=== PATIENT | male | born 1975 | race Caucasian/White ===

== ENCOUNTER 2020-12-13 12:11 | Emergency (ER) | payer BC ==
[~2020-12-13] VITALS: Ht 188 cm; Wt 81.8 kg
[2020-12-13] MEDS ORDERED: CYCLOBENZAPRINE 10 MG TABLET. PO ONE (12:45)
[2020-12-13] MEDS ORDERED: KETOROLAC 15 MG/ML VIAL. IM ONE (12:45)
--- NOTE | 2020-12-13 13:13 | RAD ---
Site ID: [id number] EXAMINATION: XR KNEE _3 VIEWS_LT. HISTORY: 45 years Male fall COMPARISON: None. FINDINGS: No fracture, dislocation or radiopaque foreign body. The joint spaces and articular surfaces appea r unremarkable. IMPRESSION: Unremarkable exam. Electronically signed by: David Vergara MD (12/13/2020 1:11 PM) [id number]
[2020-12-13 13:16] LABS: BACTERIA,URINE 0 /HPF (0-FEW); BILIRUBIN,URINE NEG (NEG); CLARITY,URINE HAZY; COLOR,URINE COLORLESS; GLUCOSE,URINE NEG (NEG); NITRITE,URINE NEG (NEG); RBC,URINE 0 /HPF (0-2); SQUAMOUS EPITHELIAL CELL,UR MOD /LPF; UROBILINOGEN,URINE 0.2 mg/dL (0.2 mg/dL); WBC,URINE 0 /HPF (0-4)
[2020-12-13 13:24] VITALS: BP 136/82
--- NOTE | 2020-12-13 13:48 | PHYS DOC ---
Past History Past Surgical History: Other Alcohol Use: None General Adult EDM: Chief Complaint: BACK PAIN OR INJURY HPI: HPI: Patient is a 45-year-old male who presents after a fall at work today. Patient states he slipped on a piece of wood and fell down to his knees. Patient states that he has left knee pain and left flank pain. Denies falling on his back. Patient reports that he has a history of chronic left-sided back pain. Denies taking anything prior to arrival for pain denies medical history. Review of Systems: Review of Systems: ROS At least 10 ROS systems have been reviewed and are negative except as documented in the HPI. General: Negative except as outlined in HPI above. Skin: Negative except as outlined in HPI above. HEENT: Negative except as outlined in HPI above. Neck: Negative except as outlined in HPI above. Respiratory: Negative except as outlined in HPI above.. Cardiovascular: Negative except as outlined in HPI above. Abdomen: Negative except as outlined in HPI above. : Negative except as outlined in HPI above. Back/MSK: Negative except as outlined in HPI above. Neuro: Negative except as outlined in HPI above. Psych: Negative except as outlined in HPI above. Current Medications: Current Meds: Current Medications Medications (Trade) Dose Ordered Sig/Patience Start Time Stop Time Status Last Admin Dose Admin Cyclobenzaprine HCl (Flexeril) 10 mg 1X ONCE 12/13/20 12:45 12/13/20 12:46 UNV Ketorolac Tromethamine (Toradol 15mg Vial) 15 mg 1X ONCE 12/13/20 12:45 12/13/20 12:46 UNV Allergies: Allergies: Allergies Coded Allergies Type Severity Reaction Last Updated Verified No Known Drug Allergies 12/13/20 No Physical Exam: PE: Constitutional: Well developed, well nourished, no acute distress, non-toxic appearance. [] HENT: Normocephalic, atraumatic, bilateral external ears normal, oropharynx moist, no oral exudates, nose normal. [] Eyes: PERRLA, EOMI, conjunctiva normal, no discharge. [] Neck: Normal range of motion, no tenderness, supple, no stridor. [] Cardiovascular:Heart rate regular rhythm, no murmur [] Lungs & Thorax: Bilateral breath sounds clear to auscultation [] Abdomen: Bowel sounds normal, soft, no tenderness, no masses, no pulsatile masses. [] Skin: Warm, dry, no erythema, no rash. [] Back: No tenderness, left CVA tenderness. [] Extremities: Left knee tenderness, ROM intact, no edema. [] Neurologic: Alert and oriented X 3, normal motor function, normal sensory function, no focal deficits noted. [] Psychologic: Affect normal, judgement normal, mood normal. [] Current Patient Data: Labs: Laboratory Tests Test 12/13/20 12:40 Urine Collection Type Unknown Urine Color Colorless Urine Clarity Hazy Urine pH 6.0 Urine Specific [place] <=1.005 Urine Protein Neg (NEG-TRACE) Urine Glucose (UA) Neg mg/dL (NEG) Urine Ketones (Stick) Neg mg/dL (NEG) Urine Blood Trace (NEG) Urine Nitrite Neg (NEG) Urine Bilirubin Neg (NEG) Urine Urobilinogen Dipstick 0.2 mg/dL (0.2 mg/dL) Urine Leukocyte Esterase Neg (NEG) Urine RBC 0 /HPF (0-2) Urine WBC 0 /HPF (0-4) Urine Squamous Epithelial Cells Mod /LPF Urine Bacteria 0 /HPF (0-FEW) Vital Signs: Vital Signs Date Time Temp Pulse Resp B/P (MAP) Pulse Ox O2 Delivery O2 Flow Rate FiO2 12/13/20 13:24 88 18 136/82 (100) 99 EKG: EKG: [] Radiology/Procedures: Radiology/Procedures: [] Heart Score: C/O Chest Pain: No Risk Factors: Risk Factors: DM, Current or recent (<one month) smoker, HTN, HLP, family history of CAD, obesity. Risk Scores: Score 0 - 3: 2.5% MACE over next 6 weeks - Discharge Home Score 4 - 6: 20.3% MACE over next 6 weeks - Admit for Clinical Observation Score 7 - 10: 72.7% MACE over next 6 weeks - Early Invasive Strategies Course & Med Decision Making: Course & Med Decision Making Pertinent Labs and Imaging studies reviewed. (See chart for details) [] 41 male presents after a fall at work today. Patient slipped on a piece of wood and fell down to his knees. Left knee pain and left flank pain. Patient does report a history of chronic back pain. UA, Flexeril, Toradol, left knee x- ray ordered. UA showed trace blood. BMP ordered along with CT abdomen and pelvis. RN went to give patient medications, patient stated that he wanted to leave and he was not going to allow any blood to be drawn. Patient signed AMA paperwork. Abe Disclaimer: Abe Disclaimer: This electronic medical record was generated, in whole or in part, using a voice recognition dictation system. Departure Departure: Impression: Primary Impression: Left knee pain Qualified Codes: M25.562 - Pain in left knee Additional Impressions: Chronic back pain Qualified Codes: M54.6 - Pain in thoracic spine; G89.29 - Other chronic pain Fall Qualified Codes: W19.XXXA - Unspecified fall, initial encounter Disposition: LEFT AGAINST MEDICAL ADVICE Condition: STABLE Referrals: PCP,NO (PCP) TANGELA SOLITARIO APRN Dec 13, 2020 13:48
== END 2020-12-13 13:50 | disposition left against medical advice (07) ==
LOC: ER 12:28
DX: M25.562 Pain in left knee (principal); M54.6 Pain in thoracic spine; W10.8XXA Fall (on) (from) other stairs and steps, initial encounter; Y93.89 Activity, other specified; Y92.89 Other specified places as the place of occurrence of the external cause; Y99.8 Other external cause status
CPT/HCPCS: 73562; 81001; 99283-25

== ENCOUNTER 2021-01-04 07:18 | Emergency (ER) | payer BC ==
[~2021-01-04] VITALS: Ht 188 cm; Wt 81.0 kg
[2021-01-04 07:25] VITALS: BP 135/85
--- NOTE | 2021-01-04 07:41 | PHYS DOC ---
Past History Additional Past Medical Histor: ptsd, schizoeffective disorder paranoid agoraphobia Past Surgical History: Other Additional Past Surgical Histo: sinus surgery x 2 Alcohol Use: None Adult General Chief Complaint Chief Complaint: FACE PAIN HPI HPI Patient is a 45-year-old male presenting via EMS for facial inflammation. This is an acute on chronic problem. He has extensive history of sinus abnormalities, states he was followed in outpatient setting by ENT throughout his life for sinus issues. He had sinus reconstruction surgery and subsequent stenting in 2001 and again in 2014. States his first surgery was at [facility] and cannot remember where his subsequent surgery was performed. Admits he has been lost to outpatient follow-up, has been living in [place] recently and just relocated back to [place] where he has no primary care physician or any type of outpatient access to care. He started developing URI symptoms yesterday with subsequent rapid inflammation of his right sinus and orbit which concerned him as this was consistent with prior episodes requiring surgery prompting him to call EMS for transport to our facility. Admits he has been at baseline health otherwise, no fever, admits development of rhinorrhea and nasal congestion yesterday without any obvious sick contacts, he is fully vaccinated against COVID-19 Review of Systems Review of Systems Fourteen body systems of review of systems have been reviewed. See HPI for pertinent positives and negative responses, other devlin all other systems are negative, non-pertinent or non-contributory Allergies Allergies Allergies Coded Allergies Type Severity Reaction Last Updated Verified No Known Drug Allergies 01/04/21 No Physical Exam Physical Exam General: Appears well, non toxic, and comfortable Skin: Warm, dry. Normal for ethnicity. HEENT: Atraumatic. PERRLA. Rhinorrhea and congestion. Nasal turbinates boggy b/l. Moist mucous membranes. Uvula midline. Maintaining secretions. No phonation changes. Right maxillary and frontal sinus tenderness with palpation without obvious soft tissue swelling and swelling around right superior orbit Neck: Trachea midline. Normal ROM. No stridor. Respiratory: Normal WOB. CTAB w/o w/r/r. No tachypnea. Cardiovascular: Regular rate and rhythm. Normal peripheral perfusion. Abdomen: Soft. Non tender. No distension. Back: Normal ROM. Musculoskeletal: No swelling or deformity. Neuro: Alert and oriented x 4. MAEE. Lymph: No cervical LAD. Psych: Flat affect, depressed mood Current Patient Data Vital Signs Vital Signs Date Time Temp Pulse Resp B/P (MAP) Pulse Ox O2 Delivery O2 Flow Rate FiO2 01/04/21 07:25 97.9 57 18 135/85 (102) 99 EKG EKG [] Radiology/Procedures Radiology/Procedures EXAM: CT facial bones with and without contrast. HISTORY: Right maxillary swelling. Prior sinus procedure. TECHNIQUE: CT of the facial bones was performed before and after the intravenous administration of iodinated contrast. One or more of the following individualized dose reduction techniques were utilized for this examination: 1. Automated exposure control. 2. Adjustment of the mA and/or kV according to patient size. 3. Use of iterative reconstruction technique. COMPARISON: None. FINDINGS: There are changes of right maxillary sinus decompressive surgery. The postsurgical ostium is widely patent. There is mild mucosal thickening within the right maxillary sinus. The right middle turbinates have been mostly resected. The left maxillary sinus is mostly opacified by mucosal thickening, without clear fluid levels. The ethmoid air cells are mostly opacified on the right and partially opacified on the left. There is moderate mucosal thickening within the frontal sinus, which also contains a small amount of fluid. The sphenoid sinus is clear. The left ostiomeatal unit is not patent. No soft tissue inflammatory process is identified. The orbits are unremarkable bilaterally. Limited images of the brain reveal no abnormality. The mastoid air cells are normally aerated. Both petrous apices are pneumatized. There are no facial fractures. IMPRESSION: 1. The left maxillary sinus is mostly opacified, mostly by mucosal thickening. 2. The ethmoid air cells are partially opacified on the right greater than left. There is some fluid within the frontal sinus. 3. Status post surgical decompression of the right maxillary sinus. Electronically signed by: Shivam Breen MD (01/04/2021 8:38 AM) [id number] Heart Score C/O Chest Pain: No Risk Factors: Risk Factors: DM, Current or recent (<one month) smoker, HTN, HLP, family history of CAD, obesity. Risk Scores: Risk Factors: DM, Current or recent (<one month) smoker, HTN, HLP, family history of CAD, obesity. Course & Med Decision Making Course & Med Decision Making ABCs unremarkable HPI physical exam and comprehensive ER work-up nonconcerning for any emergent or surgical issues Findings consistent with sinusitis. Despite being acute in nature, patient has concerning comorbid history and extensive sinus surgery with subsequent complications. Joint decision made to treat with antibiotics given high risk for worsening condition Patient tolerated p.o. Augmentin administered in ER setting. Subsequent prescription written. Patient educated on need for close PCP and ENT follow-up in outpatient setting to ensure continued symptomatic improvement. Strict return precautions discussed with good understanding, all questions and concerns addressed prior to ER departure Dragon Disclaimer Dragon Disclaimer This electronic medical record was generated, in whole or in part, using a voice recognition dictation system. Departure Departure: Impression: Primary Impression: Acute sinusitis with coexisting condition requiring prophylactic treatment Disposition: HOME / SELF CARE / HOMELESS Condition: STABLE Referrals: PCP,NO (PCP) Patient Instructions: Sinusitis Scripts Amoxicillin/Potassium Clav (AUGMENTIN 875-125 TABLET) 1 Each Tablet 1 TAB PO BID for sinusitis for 7 Days, #14 TAB 0 Refills Prov: LYNDSEY MONTANA DO 01/04/21 LYNDSEY MONTANA DO Jan 04, 2021 07:41
[2021-01-04] MEDS ORDERED: IOHEXOL 300 MG/ML 75 ML VIAL. IV ONE (07:45)
[2021-01-04] MEDS ORDERED: HYDROcodone/APAP 7.5/325MG 1 TAB TABLET PO ONE (08:00)
--- NOTE | 2021-01-04 08:41 | RAD ---
EXAM: CT facial bones with and without contrast. HISTORY: Right maxillary swelling. Prior sinus procedure. TECHNIQUE: CT of the facial bones was performed before and after the intravenous administration of io dinated contrast. One or more of the following individualized dose reduction techniques were utilized for this examination: 1. Automated exposure control. 2. Adjustment of the mA and/or kV according to patient size. 3. Use of iterative reconstruction technique. COMPARISON: None. FINDINGS: There are changes of right maxillary sinus decompressive surgery. The postsurgical ostium i s widely patent. There is mild mucosal thickening within the right maxillary sinus. The right middle turbinates have been mostly resected. The left maxillary sinus is mostly opacified by mucosal thickening, without clear fluid levels. The e thmoid air cells are mostly opacified on the right and partially opacified on the left. There is mode rate mucosal thickening within the frontal sinus, which also contains a small amount of fluid. The sphenoid sinus is clear. The left ostiomeatal unit is not patent. No soft tissue inflammatory process is identified. The orbits are unremarkable bilaterally. Limited i mages of the brain reveal no abnormality. The mastoid air cells are normally aerated. Both petrous ap ices are pneumatized. There are no facial fractures. IMPRESSION: 1. The left maxillary sinus is mostly opacified, mostly by mucosal thickening. 2. The ethmoid air cells are partially opacified on the right greater than left. There is some fluid within the frontal sinus. 3. Status post surgical decompression of the right maxillary sinus. Electronically signed by: Shivam Breen MD (01/04/2021 8:38 AM) [id number]
[2021-01-04] MEDS ORDERED: AMOX1TAB61 PO (08:48)
[2021-01-04] MEDS ORDERED: AMOXICILLIN/K CLAV 875/125MG TABLET. ONE (08:55)
[2021-01-04] MEDS ORDERED: AMOXICILLIN/K CLAV 875/125MG TABLET. PO ONE (09:00)
== END 2021-01-04 09:01 | disposition home or self-care (01) ==
LOC: ER 07:18
DX: J01.10 Acute frontal sinusitis, unspecified (principal); Z20.822 Contact with and (suspected) exposure to COVID-19
CPT/HCPCS: 70488; 99285; C9803; Q9967; U0003

== ENCOUNTER 2021-01-24 13:50 | Emergency (ER) | payer BC ==
[~2021-01-24] VITALS: Ht 188 cm; Wt 81.0 kg
[~2021-01-24 13:50] MED LIST: AMOX1TAB61 PO
--- NOTE | 2021-01-24 14:02 | PHYS DOC ---
Past History Additional Past Medical Histor: ptsd, schizoeffective disorder paranoid agoraphobia Past Surgical History: Other Additional Past Surgical Histo: sinus surgery x 2 Alcohol Use: Occasionally Adult General HPI HPI Patient is a 45-year-old male with a past medical history of schizophrenia, anxiety and depression who presents with suicidal ideation and plan. States that he went to sometime back for the same thing, and was treated while he was there but after he was gone he ran out of his medications and is homeless and has been thinking about committing suicide by any means necessary including overdose or running out into the middle of traffic. Currently denies any homicidal ideation or hallucinations. Denies any recent traumas, travels, illnesses, fevers, chest pain, shortness of breath, abdominal pain, nausea, vomiting. States he had not eaten in a couple days. Review of Systems Review of Systems Review of systems otherwise unremarkable except noted in HPI Allergies Allergies Allergies Coded Allergies Type Severity Reaction Last Updated Verified No Known Drug Allergies 01/04/21 No Physical Exam Physical Exam Constitutional: Well developed, well nourished, no acute distress, non-toxic appearance. [] HENT: Normocephalic, atraumatic, bilateral external ears normal, oropharynx moist, no oral exudates, nose normal. [] Eyes: PERRLA, EOMI, conjunctiva normal, no discharge. [] Neck: Normal range of motion, no tenderness, supple, no stridor. [] Cardiovascular:Heart rate regular rhythm, no murmur [] Lungs & Thorax: Bilateral breath sounds clear to auscultation [] Abdomen: Bowel sounds normal, soft, no tenderness, no masses, no pulsatile masses. [] Skin: Warm, dry, no erythema, no rash. [] Back: No tenderness, no CVA tenderness. [] Extremities: No tenderness, no cyanosis, no clubbing, ROM intact, no edema. [] Neurologic: Alert and oriented X 3, normal motor function, normal sensory function, no focal deficits noted. [] Psychologic: Affect normal, judgement normal, mood normal. [] EKG EKG [] Radiology/Procedures Radiology/Procedures [] Heart Score C/O Chest Pain: No Risk Factors: Risk Factors: DM, Current or recent (<one month) smoker, HTN, HLP, family history of CAD, obesity. Risk Scores: Risk Factors: DM, Current or recent (<one month) smoker, HTN, HLP, family history of CAD, obesity. Course & Med Decision Making Course & Med Decision Making Patient is a 45-year-old male who presents with suicidal ideation and plan Vital signs notable for sinus tachycardia. Physical exam noted above. Placed on the monitor with IV access established and IV fluid resuscitation begun. On reevaluation, patient stated that he is not suicidal, not homicidal and definitely not hallucinating. States only reason he came in today is because he is homeless, needed a place to rest and some to eat and was hoping to be transferred to so he can get some medications. Discussed this with patient stating that he had came in wanting some help and we had a plan to draw labs and try to get him admitted to facility where he could get medication management. States that he already knows what his diagnoses are, is not suicidal, not homicidal or hallucinating and is going to leave here and go back over to because that is where he gets his usual care and he had already called them on the phone to let them know he was coming. 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 Patient alert and oriented no acute distress, cooperative and pleasant despite wanting to leave, ate some food while here in the ED and left on his own accord. Dragon Disclaimer Dragon Disclaimer This electronic medical record was generated, in whole or in part, using a voice recognition dictation system. Departure Departure: Impression: Primary Impression: Suicidal ideation Disposition: 01 HOME / SELF CARE / HOMELESS Condition: STABLE Referrals: PCP,NO (PCP) DAVID COOPER MD Patient Instructions: Anxiety and Panic Attacks, Depression, Adult, Suicidal Feelings, How to Help Yourself Additional Instructions: Thank you for coming into the emergency department today. Please read all the attached information carefully go back over some of the things we discussed. Please go through the resources given to you by the ER and the psychiatric assessment steam clean machine operator. You are offered boarding here in the emergency department with laboratory analysis and medical management until a bed was found for you at an inpatient service. You stated that you were not suicidal, not homicidal and not hallucinating and the only reason you came in here today is because you are homeless, he wanted something to eat and was hoping to get a ride over to as that is where you have gotten your care in the past. You stated that she called [facility] on your phone from here, to let them know that you were coming by and was going to go straight to [facility] after leaving here. We discussed that it was possible to get the care that he needed here and just had to wait so we can get some things of motion. Patient was polite and stated no thank you, on February go ahead and leave and had to [facility], and I am not suicidal, homicidal or hallucinating so I do not need to stay. KAIN MIGUEL MD Jan 24, 2021 14:02
[2021-01-24] MEDS ORDERED: IV RINGERS SOLUTION,LACTATED 1,000 ML IV ONE (14:45)
== END 2021-01-24 15:47 | disposition home or self-care (01) ==
LOC: ER 13:50
DX: R45.851 Suicidal ideations (principal); F32.9 Major depressive disorder, single episode, unspecified; F41.9 Anxiety disorder, unspecified; F20.9 Schizophrenia, unspecified
CPT/HCPCS: 99285-25

== ENCOUNTER 2021-01-31 14:52 | Emergency (ER) | payer BC ==
[~2021-01-31] VITALS: Ht 188 cm; Wt 81.0 kg
[2021-01-31 15:21] VITALS: BP 128/70
--- NOTE | 2021-01-31 15:36 | PHYS DOC ---
Past History Additional Past Medical Histor: ptsd, schizoeffective disorder paranoid agoraphobia (ALYSSA JUAREZ Hina [employer]OR) Past Surgical History: Other Additional Past Surgical Histo: sinus surgery x 2 (LARRYALYSSA [employer] QUAL[employer] INSPECTOR) Alcohol Use: Rarely (LARRYALYSSA MACH[employer] QUAL[employer] INSPECTOR) Adult General Chief Complaint Chief Complaint: SUICIDAL IDEATION HPI HPI Patient is a 45-year-old male patient with history of schizoaffective, depression, anxiety, agoraphobia, who presents to the ED today to be evaluated for suicidal ideation. Patient himself states he is homeless, he called 911 because he felt he could jump off something or walk into something. Patient states he has been out of his medicines for weeks. He refuses to give further information stating he has had enough of those questions. (LARRYALYSSA [employer] QUAL[employer] INSPECTOR) Review of Systems Review of Systems Constitutional: Denies fever or chills [] Eyes: Denies change in visual acuity, redness, or eye pain [] HENT: Denies nasal congestion or sore throat [] Respiratory: Denies cough or shortness of breath [] Cardiovascular: No additional information not addressed in HPI [] GI: Denies abdominal pain, nausea, vomiting, bloody stools or diarrhea [] : Denies dysuria or hematuria [] Musculoskeletal: Denies back pain or joint pain [] Integument: Denies rash or skin lesions [] Neurologic: Denies headache, focal weakness or sensory changes [] Psychiatric: Reports suicidal ideations All other systems were reviewed and found to be within normal limits, except as documented in this note. (ARLENEALYSSA Spann [employer] INSPECTOR) Allergies Allergies Allergies Coded Allergies Type Severity Reaction Last Updated Verified No Known Drug Allergies 01/04/21 No (LARRYALYSSA [employer] INSPECTOR) Physical Exam Physical Exam Constitutional: Well developed, well nourished, no acute distress, non-toxic appearance. [] HENT: Normocephalic, atraumatic, bilateral external ears normal, oropharynx moist, no oral exudates, nose normal. [] Eyes: PERRLA, EOMI, conjunctiva normal, no discharge. [] Neck: Normal range of motion, no tenderness, supple, no stridor. [] Cardiovascular:Heart rate regular rhythm, no murmur [] Lungs & Thorax: Bilateral breath sounds clear to auscultation [] Abdomen: Bowel sounds normal, soft, no tenderness, no masses, no pulsatile masses. [] Skin: Warm, dry, no erythema, no rash. [] Back: No tenderness, no CVA tenderness. [] Extremities: No tenderness, no cyanosis, no clubbing, ROM intact, no edema. [] Neurologic: Alert and oriented X 3, normal motor function, normal sensory function, no focal deficits noted. [] Psychologic: Flat affect, talking to himself (ALYSSA JUAREZ APRN) Current Patient Data Vital Signs Vital Signs Date Time Temp Pulse Resp B/P (MAP) Pulse Ox O2 Delivery O2 Flow Rate FiO2 01/31/21 15:21 98.3 88 18 128/70 (89) 100 (ALYSSA JUAREZ APRN) EKG EKG [] (ALYSSA JUAREZ APRN) Radiology/Procedures Radiology/Procedures [] (ALYSSA JUAREZ APRN) Heart Score C/O Chest Pain: N/A Risk Factors: Risk Factors: DM, Current or recent (<one month) smoker, HTN, HLP, family history of CAD, obesity. Risk Scores: Risk Factors: DM, Current or recent (<one month) smoker, HTN, HLP, family history of CAD, obesity. (ALYSSA JUAREZ APRN) Course & Med Decision Making Course & Med Decision Making Pertinent Labs and Imaging studies reviewed. (See chart for details) This is a 45-year-old male patient presenting to the ED today tubulated with suicidal ideations. See HPI. [id number] Whit from [facility] team evaluating patient labs were ordered for placement. He refused labs 1832 patient in the hallway cursing demanding his personal belongings to leave. Dr. Montana talked to him and Whit from PAT team. He walked away and refused help. (ALYSSA JUAREZ APRN) Course & Med Decision Making I was the Attending physician on the above date of service of this patient. This patient was evaluated, examined, treated, and dispositioned from the emergency department by the mid-level practitioner. I got involved in patient care when patient started getting angry and requesting to leave. I had an extensive discussion with the patient regarding the risks of leaving AMA including but not limited to , permanent disability, and worsening condition. Pt ack nowledged the risks and agreed to take full responsibility. Pt was A&Ox4 and had full medical decision making capacity when they signed the AMA sheet. He was denying any and all medical attention while in ER setting. He denies any SI/HI. Pat team specialist at bedside with me and assisted in evaluation. No acute indication for involuntary hold or inpatient psych transfer. I again disclosed my concern for patient given the fact he has been off of his behavioral health medications and my recommendation to comply with medical treatment so we could get him the help he needed. The risks of refusing recommended care that were disclosed and acknowledged by the patient include loss of current lifestyle, permanent mental impairment, and .The recommended medical care being refused has been discussed with the patient and is to stay for continued monitoring, workup, and possible treatment. Discharge Care: The patient understands they are welcome to return to the hospital at any time to receive the recommended care or any other care at any time, regardless of their ability to pay for such care. Discharge instructions were provided to the patient. Electronically signed, Lyndsey Montana DO (LYNDSEY MONTANA DO) Abe Disclaimer Abe Disclaimer This electronic medical record was generated, in whole or in part, using a voice recognition dictation system. (ALYSSA JUAREZ APRN) Departure Departure: Impression: Primary Impression: Suicidal ideations Disposition: LEFT AGAINST MEDICAL ADVICE Condition: STABLE Referrals: PCP,NO (PCP) ALYSSA JUAREZ APRN Jan 31, 2021 15:36 LYNDSEY MONTANA DO Feb 02, 2021 06:20
== END 2021-01-31 18:56 | disposition home or self-care (01) ==
LOC: ER 14:52
DX: R45.851 Suicidal ideations (principal); F32.9 Major depressive disorder, single episode, unspecified; F41.9 Anxiety disorder, unspecified; F20.9 Schizophrenia, unspecified
CPT/HCPCS: 87426; 99285; U0003